=== PATIENT | female | born 2000 | race American Indian/Alaskan Native ===

== ENCOUNTER 2023-06-08 09:15 | Emergency (ER) | payer SELFPAY ==
[~2023-06-08] VITALS: Ht 160 cm; Wt 68.2 kg
[2023-06-08] MEDS ORDERED: MYCO250C PO (09:22)
[2023-06-08] MEDS ORDERED: HYDR200T46 PO (09:23)
[2023-06-08] MEDS ORDERED: CIPR-249 PO (10:59)
[2023-06-08 11:27] VITALS: BP 110/74; TEMP 97.7; O2SAT 100
== END 2023-06-08 11:52 | disposition home or self-care (01) ==
LOC: M ED 09:15
DX: N39.0 Urinary tract infection, site not specified (principal); Z87.440 Personal history of urinary (tract) infections; Z87.448 Personal history of other diseases of urinary system